=== PATIENT | female | born 1935 | race Caucasian/White ===

== ENCOUNTER 2017-11-12 20:12 | Inpatient (IN) | payer OTHER ==
[~2017-11-12] VITALS: Ht 170.2 cm; Wt 87.5 kg
[2017-11-12 20:20] VITALS: BP 145/90
[2017-11-12] MEDS ORDERED: COLACE100 MG PO (20:35)
[2017-11-12] MEDS ORDERED: CALICUM 500+D1 EACH PO (20:36)
[2017-11-12 20:44] LABS: HEMATOCRIT 39.2 % (37.0-47.0); HEMOGLOBIN 12.8 gm/dL (12.0-15.0); MCH 29.8 pg (26.0-34.0); MCHC 32.6 g/dL (28.0-37.0); MCV 91.1 fL (80.0-100.0); MPV 9.7 fl. (7.2-11.1); NUCLEATED RBCS 0 /100WBC; PLATELET COUNT* 167 thou/uL (150-400); RDW-CV 16.8 % (10.5-14.5); WBC 21.7 thou/uL (4.0-11.0)
[2017-11-12 20:52] LABS: CALCIUM 9.3 mg/dL (8.5-10.1); CREATININE 1.4 mg/dL (0.6-1.3); POTASSIUM 3.5 mmol/L (3.5-5.1)
[2017-11-12 20:54] LABS: INR 1.3; PROTIME 13.1 Seconds (9.20-11.50)
[2017-11-12 20:57] LABS: ALBUMIN 2.5 g/dL (3.4-5.0); TOTAL BILIRUBIN 0.7 mg/dL (<0.1-1.0); TOTAL PROTEIN 7.3 g/dL (6.4-8.2)
[2017-11-12 21:16] LABS: TROPONIN-I LEVEL 0.14 ng/mL (<0.06)
[2017-11-12 21:18] LABS: ABSOLUTE EOSINOPHILS 0.4 thou/uL (0.0-0.7); ABSOLUTE LYMPHOCYTES 0.9 thou/uL (0.8-5.3); ABSOLUTE NEUTROPHILS 20.4 thou/uL (1.6-8.1)
[2017-11-12 21:19] LABS: CLUMPED PLTS FEW; PLATELET ESTIMATE ADEQUATE
[2017-11-12 21:20] LABS: ANISOCYTOSIS Occasional; HYPOCHROMASIA 1+; TOXIC GRANULATION 1+
[2017-11-12 22:53] LABS: INFLUENZA A ANTIGEN None Detected (None Detect); INFLUENZA B ANTIGEN None Detected (None Detect)
[2017-11-12 23:01] LABS: URINE BILIRUBIN NEGATIVE (Negative); URINE BLOOD 2+ (Negative); URINE CLARITY CLEAR; URINE COLOR YELLOW; URINE GLUCOSE-RANDOM NEGATIVE (Negative); URINE KETONES TRACE (Negative); URINE LEUKOCYTES-REFLEX 1+ (Negative); URINE PROTEIN 1+ (Negative); URINE UROBILINOGEN 0.2 E.U./dl (0.2-1.0)
[2017-11-12 23:02] LABS: URINE NITRITE-REFLEX POSITIVE (Negative)
[2017-11-12 23:08] LABS: SQUAMOUS 0-3 Few /LPF (0-3); WBC CLUMPS Few (None Seen)
[2017-11-12 23:09] LABS: BACTERIA-REFLEX >30 Many /HPF (None Seen); CASTS None Seen /LPF (None Seen); CRYSTALS None Seen /LPF (None Seen); MUCUS 0-3 Light strn/LPF (None Seen); URINE WBC-REFLEX >25 Many /HPF (0-5)
[2017-11-13] VITALS (18 sets, daily range): BP systolic 89–166; BP diastolic 31–101
--- NOTE | 2017-11-13 02:37 | NUR ---
PT ADMITTED TO ICU ROOM 8 AT 0150. RECIEVED REPORT FROM JOHN OLIVAS RN. PT HAS NORMAL SALINE AND AMIODARONE INFUSING UPON ARRIVAL. PT RECIEVED VANCOMYCIN AND IV ZOSYN IN ED. PT ALERT AND ORIENTED X4, NSWERS ALL QUESTIONS APPROPRIATELY. PT HAD PEDROZA CATHETER FFROM THAT WAS PLACE 3 WEEKS AGO. PEDROZA WAS DISCONTINUED. PEDROZA TEMP PROBE INSERTED BY YENY CHRISTOPHER RN AND HECTOR HESS RN. PT AFIB ON MONITOR WITH CONTROLED RATE. PT'S BLOOD PRESSURE WITHIN NORMAL LIMITS. PT AFEBRILE AT THIS TIME. BLOOD AND URINE CULTURES DRAWN IN ED. PT'S CALL LIGHT IN REACH, PT DEMONSTRATES PROPER USE.
[2017-11-13 04:23] LABS: HEMATOCRIT 32.4 % (37.0-47.0); MCHC 32.5 g/dL (28.0-37.0); MCV 92.4 fL (80.0-100.0); MPV 9.1 fl. (7.2-11.1); RBC 3.51 mil/uL (4.20-5.00); RDW-CV 16.7 % (10.5-14.5); WBC 15.8 thou/uL (4.0-11.0)
[2017-11-13 04:43] LABS: HEMOGLOBIN 10.5 gm/dL (12.0-15.0)
[2017-11-13 06:00] LABS: ALBUMIN 1.9 g/dL (3.4-5.0); CALCIUM 7.5 mg/dL (8.5-10.1); CREATININE 1.2 mg/dL (0.6-1.3); PHOSPHORUS* 3.5 mg/dL (2.5-4.9); POTASSIUM 3.3 mmol/L (3.5-5.1); TOTAL BILIRUBIN 0.8 mg/dL (<0.1-1.0); TOTAL PROTEIN 5.5 g/dL (6.4-8.2)
--- NOTE | 2017-11-13 11:30 | NUR ---
SPOKE WITH PT AND SIGNIFICANT OTHER, FEDE, AT THE BEDSIDE. FEDE HAS PROVIDED CARE FOR PT FOR YEARS, SHE IS UNABLE TO WALK. HE LIFTS HER OUT OF BED TO HER WHEELCHAIR OR BSC. HE BUILT A RAMP IN THE BATHROOM INTO THE SHOWER SO HE CAN PUT HER IN A SHOWER CHAIR AND THEN WHEEL HER DIRECTLY INTO THE SHOWER. SHE HAS HOME O2. SHE IS CURRENT WITH HOME HEALTH BUT HE DOESN'T KNOW THE NAME OF THE AGENCY, 'IT IS SOMEONE WITH AN OFFICE IN [place].' PT IS ALERT AND ORIENTED AND ABLE TO ANSWER ALL QUESTIONS. PT PLANS ON RETURNING HOME WITH CONTINUED SUPPORT FROM FEDE. HE SAID THAT PT HAS A DTR, 'BUT THE TWO OF US DON'T GET ALONG AND RECENTLY DECEMBER HAS BEEN MAD AT HER TOO, THE WAY SHE ACTS.' ASKED PT IF SHE HAD AN ADVANCE DIRECTIVE, SHE SAID MAYBE A REAL OLD ONE, SHE ISN'T SURE. DISCUSSED WITH HER COMPLETING AN ADVANCE DIRECTIVE, SHE SAID THAT SHE WOULD WANT FEDE TO MAKE HEALTH CARE DECISIONS FOR HER. PROVIDED PT AND S.O. WITH BOOKLET AND FORMS, SUGGESTED THAT THEY READ THEM OVER AND DISCUSS WHAT SHE WOULD WANT OR NOT WANT DONE. THEY ARE AWARE THE FORMS NEED TO BE NOTARIZED, AND THEY CAN CONTACT ME IF THEY HAVE QUESTIONS. NURSING AWARE THAT INFO WAS LEFT WITH PT REGARDING ADVANCE DIRECTIVE.
[2017-11-13 11:51] LABS: BE -1.5 mmol/L (-2 to +3); PCO2 43.8 mmHg (35.0-45.0); PO2 69.6 mmHg (75.0-100.0); pH 7.357 (7.340-7.450)
--- NOTE | 2017-11-13 12:18 | NUR ---
WOUND CARE NOTE: CONSULT RECEIVED FOR CELLULITIS. PATIENT PRESENTS WITH A LARGE AREA TO THE LEFT, SUPERIOR, LATERAL LEG EXTENDS BOTH POSTERIORLY AND ANTERIORLY. OULINED WITH MARKER. AREA IS RED AND HOT TO TOUCH. NO OPEN WOUNDS NOTED WITHIN THE CELLULITIC AREA. PATIENT DOES HAVE WOUNDS TO HER SACRUM AND LEFT BUTTOCK. LEFT BUTTOCK: PATIENT'S SIGNIFICANT OTHER STATES THIS IS FROM WHEN THE PARAMEDICS HAD TO DRAG HER OUT OF THEIR HOUSE. HOWEVER, THIS WOUND IS OVER A BONY PROMINENCE. BELIEVE THIS TO BE A STAGE 3 PRESSURE ULCER MEASURING 1.5X3X0.6 WITH TUNNELING AT 12 O'CLOCK 1CM. MOIST, PINK WOUND BED. XUAN-WOUND WITH SCAR TISSUE, BELIEVE WOUND MAY HAVE EPIBOLE. SIGNIFICANT OTHER STATES THEY HAVE JUST BEEN USING GAUZE AND TAPE OVER AREA BECAUSE THE CHREY THAT CHANGES HER DRESSING SAID IT IS GETTING BETTER. AREA WAS CLEANSED WITH WOUND CLEANSER, PATTED DRY. PACKED WOUND WITH AQUACEL AG. SKIN PREPPED. APPLIED BORDERED FOAM. SIGNIFICANT OTHER STATED THEY USED TO USE AQUACEL AG. LEFT SIDE OF SACRUM: STAGE 3 PRESSURE ULCER MEASURING 0.5X2X0.2. MOIST, RED WOUND BED. XUAN-WOUND WITH SCALING. CLEANSED WITH WOUND CLEANSER, PATTED DRY. APPLIED AQUACEL AG TO WOUND BED. SKIN PREPPED. APPLIED BORDERED FOAM. SUPERIOR ASPECT OF SACRUM: RED, RAISED AREA, POSSIBLY BLISTERED. BLANCHABLE. UNSURE OF ETIOLOGY, COULD BE FRICTION/SHEARING RELATED. LEFT OPEN TO AIR. PATIENT ALSO HAS MULTIPLE AREAS OF ECCHYMOSIS AND SKIN TEARS TO BILATERAL KNEES/SHINS. SIGNIF. OTHER STATES THESE ARE FROM THE ADJUSTMENTS ON THE COMMODE. HE HOPES TO BE ABLE TO GET A NEW ONE SO IT DOESN'T HURT HER SKIN. PATIENT WAS TURNED ON RIGHT SIDE WITH WEDGES. EDUCATED PATIENT, SIGNIFICANT OTHER AND NURSE ON NEED FOR RIGHT SIDE-BACK TURNING TO KEEP OFF THE WOUNDS, COMMUNICATED UNDERSTANDING. PATIENT HAD BUNNY BOOTS TO BILATERAL HEELS. REMOVED, CHECKED HEELS. HEELS ARE INTACT. EDUCATED PATIENT, SIGNIFICANT OTHER, AND NURSE ON NEED FOR OFFLOADING BOOTS TO KEEP HEELS UP OFF OF THE BED, COMMUNICATED UNDERTANDING. EDUCATED PATIENT AND SIGNIFICANT OTHER ON IMPORTANCE OF NUTRITION FOR WOUND HEALING, COMMUNICATED UNDERSTANDING. SIG. OTHER STATES HE COOKS FOR HER, SHE LOVES EGGS AND TOAST IN THE AM AND SPAGHETTI. RECOMMEND TURN Q2 HOURS-BACK AND RIGHT SIDE-KEEP OFF LEFT SIDE BECAUSE OF THE WOUNDS ENCOURAGE GOOD NUTRITION AND HYDRATION FOLLOW UP IN WOUND CENTER UPON DISCHARGE
--- NOTE | 2017-11-13 17:47 | EKG ---
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[employer]: [facility] : 1935 Requested By: Mary Stoner Order Number: [id number] MD: Pillo Perez Measurements Intervals [place] Rate: 98 P: MD: QRS: 20 QRSD: 107 T: 248 QT: 386 QTc: 493 Interpretive Statements Atrial fibrillation RSR' in V1 or V2, right VCD or RVH Nonspecific T abnormalities, lateral leads Borderline prolonged QT interval No previous ECG available for comparison Electronically Signed On 11-13-2017 17:47:09 CDT by Pillo Perez [email or web address] <ELECTRONICALLY SIGNED> By: Pillo Perez MD, [facility] 11/13/17 174 26 26 Pillo Perez MD, [facility] /EPI
[2017-11-14] VITALS (10 sets, daily range): BP systolic 122–139; BP diastolic 47–78
[2017-11-14 04:29] LABS: ABSOLUTE LYMPHOCYTES 0.4 thou/uL (0.8-5.3); ABSOLUTE MONOCYTES 0.2 thou/uL (0.0-1.2); ABSOLUTE NEUTROPHILS 7.6 thou/uL (1.6-8.1); BASOPHILS 0.1 %; HEMATOCRIT 34.7 % (37.0-47.0); HEMOGLOBIN 11.2 gm/dL (12.0-15.0); LYMPHOCYTES 4.5 %; MCHC 32.5 g/dL (28.0-37.0); MCV 92.5 fL (80.0-100.0); MPV 9.7 fl. (7.2-11.1); NUCLEATED RBCS 0 /100WBC; PLATELET COUNT* 104 thou/uL (150-400); POLYS 93.4 %; RBC 3.75 mil/uL (4.20-5.00); RDW-CV 17.1 % (10.5-14.5); WBC 8.1 thou/uL (4.0-11.0)
[2017-11-14 04:45] LABS: PREALBUMIN 7.7 mg/dL (18.0-35.7)
[2017-11-14 05:10] LABS: ALBUMIN 2.1 g/dL (3.4-5.0); CALCIUM 7.7 mg/dL (8.5-10.1); CREATININE 1.2 mg/dL (0.6-1.3); MAGNESIUM 1.3 mg/dL (1.8-2.4); POTASSIUM 3.4 mmol/L (3.5-5.1); TOTAL BILIRUBIN 0.7 mg/dL (<0.1-1.0); TOTAL PROTEIN 6.1 g/dL (6.4-8.2)
--- NOTE | 2017-11-14 06:18 | NUR ---
PT CURRENTLY RESTING IN BED AND COMFORTABLE. PT AFIB ON MONITOR. PT WITH LOW GRADE TEMP THROUGHOUT SHIFT. AM LABS REVIEWED. PT CONTINUES WITH MAINTENANCE IVF.
--- NOTE | 2017-11-14 06:19 | CON ---
[address] [address] CONSULTATION Name: TASHA HAMILTON Room: [address] IN M.R.#: [id number] Admission: 11/12/17 Attend Phys: Adrian Rangel Discharge: Date of : 33 Report #: [id number] THIS REPORT FOR: //name// CC: Dada Simpson DATE OF SERVICE: 11/13/2017 INFECTIOUS DISEASE CONSULTATION ATTENDING PHYSICIAN: Otis Simpson DO REASON FOR EVALUATION: Sepsis, probable pneumonitis, may well be postobstructive, also apparently has extensive skin and soft tissue infection involving the distal aspect of her left lateral torso extending onto her thigh and moderate to marked pyuria as well. HISTORY OF PRESENT ILLNESS: Chart reviewed, patient examined. This is an 82-year-old with history of severe scoliosis. She is nonambulatory, who apparently acutely had developed gastrointestinal-related complaints. She was evaluated in the Emergency Room, prescribed ciprofloxacin. It is not clear that she had diverticulitis within 1 dose; however, she apparently experienced severe neuropsychiatric with uncontrolled muscle contractions, encephalopathy, so discontinued. Actually, she also had some watery diarrhea as well. She had improved over the course of the next 24-48 hours, only to have worsening issues with profound weakness. She almost fell, was found to have some low grade temperature elevations to 101.6 recorded here, felt to have a sepsis and was placed in intensive care unit. As part of the evaluation, chest x-ray, there is question of pneumonitis, CT of the chest in followup noted a large mass in the left upper lobe with extension into the upper mediastinum. Urinalysis showed greater than 25 white cells, greater than 30 bacteria. Additional exam, extensive area of erythrodermic type, painful eruption involving the area of proximal thigh laterally on the left side, is extending onto the torso felt to be consistent with cellulitis. She was started on broad-spectrum therapy with vancomycin as well as piperacillin and tazobactam. She is somewhat lethargic at this point. She is not in significant distress at this point. She is mildly encephalopathic. ALLERGIES: LISTED TO SULFA. CURRENT MEDICATIONS: Include pantoprazole, enoxaparin, ipratropium and albuterol inhaler, Zosyn, methylprednisolone, vancomycin, p.r.n. analgesics, antiemetics. PAST MEDICAL HISTORY: Includes oxygen-requiring COPD, history of severe scoliosis that left her with inability to ambulate, [place] [address] CONSULTATION Name: TASHA HAMILTON Room: [address] IN [facility]#: [id number] Admission: 11/12/17 Attend Phys: Adrian Rangel Discharge: Date of : 33 Report #: [id number] chronic Snyder catheter. SOCIAL HISTORY: Former smoker. No ethanol. FAMILY HISTORY: Noncontributory. REVIEW OF SYSTEMS: As above. Denies any abdominal-related complaints. Does admit to some dyspnea. PHYSICAL EXAMINATION: GENERAL: She appears chronically ill, undernourished. She is cooperative, feeding herself. There is unclear degree of encephalopathy. VITAL SIGNS: Temperature 99.2; as noted above, T-max 101.6, pulse 78, respirations 18, blood pressure 104/31. SKIN: Warm, dry, no rashes. HEENT: Otherwise, unremarkable. Nasal cannula oxygen in place. NECK: Supple. LUNGS: Diminished breath sounds, few scattered, coarse, left greater than right. HEART: Regular rate. No appreciated murmur. ABDOMEN: Mildly distended. It is otherwise soft, nontender. There are no peritoneal signs. GENITOURINARY: Deferred. RECTAL: Deferred. LABORATORY DATA: Recent ABGs: pH 7.357, pCO2 of 43, pO2 of 69.6 that was on 4 liters. Blood cultures sterile thus far. CT of the chest is in followup. The plain film showed a large mass in the left upper lobe with extension to the upper mediastinum abutting the descending aorta, probable left hilar adenopathy, mediastinal adenopathy. Electrolytes: Sodium 141, potassium 3.3, chloride 105, bicarbonate 28, BUN and creatinine 18 and 1.2, anion gap of 8. LFTs unremarkable. Albumin of 1.9, total protein 5.5. CT of the pelvis, inguinal or femoral hernia, left hip joint replacement, posterior aspect shows possible hematoma or granulation tissue, left ischial tuberosity in the left femur without evident definite fluid collection. Culture from the buttock is pending. Gram stain showed Gram-positive rods, gram-positive cocci, few wbc's. Urinalysis, white count of greater than 25, bacteria greater than 30. Lactic acid of 1.8. Influenza antigen not detected. CBC: White count of 21.7, H and H 12.8 and 39.2, platelets of 167. Did have toxic granulations and some Dohle bodies. ASSESSMENT: Sepsis with apparent multiple foci of infection. I think clearly has skin and soft tissue infection with cellulitis, probably arising from superficial ulcers, likely chronic indwelling Snyder, although has marked pyuria and then finally evidence of pulmonary mass and possible secondary bacterial pneumonitis. We will continue broad spectrum therapy as prescribed. Per staff, [address] [place] [address] CONSULTATION Name: TASHA HAMILTON Room: [address] IN .R.#: [id number] Admission: 11/12/17 Attend Phys: Adrian Rangel Discharge: Date of : 34 Report #: [id number] this is marginally improved since admission. We will await culture results, urinary antigens. It is not clear that she would be a surgical candidate. Followup imaging is necessary; however, she remains critically ill. <ELECTRONICALLY SIGNED> By: Herman Hall MD 11/14/17 0619 1500 [id number] Hall MD /nt
--- NOTE | 2017-11-14 08:11 | NUR ---
REPORT CALLED TO RANJAN HOLBROOK.
--- NOTE | 2017-11-14 10:18 | CON ---
[address] [address] CONSULTATION Name: TASHA HAMILTON Room: [address] IN M.R.#: [id number] Admission: 11/12/17 Attend Phys: Adrian Rangel Discharge: Date of : 34 Report #: [id number] THIS REPORT FOR: //name// CC: Dada Simpson DATE OF SERVICE: 11/13/2017 REFERRING PHYSICIAN: Hossein Swanson MD CHIEF COMPLAINT: Lung mass. HISTORY OF PRESENT ILLNESS: The patient is an 82-year-old female who is accompanied by her "significant other." He tells me that they have been together for about 25 years. The patient had been a smoker, quit 25 years ago, probably has about a 30-35 pack year smoking history. She has never been diagnosed with any respiratory related problems. According to the patient's significant other, she had been in her usual state of health up until yesterday when she developed sudden onset of which she felt cold, hot, was not feeling well otherwise. There was no association of nausea, vomiting or pain of any sort. Because of her change of subjective symptoms, she brought her to the Emergency Room. Today, the patient is awake, alert. She is responsive. She is experiencing some discomfort and pain on the left hip and buttock area and lower back. The patient is not experiencing any distress. She has been coughing up some thick phlegm. Today, she is denying nausea, vomiting, diarrhea, constipation. She does have a Snyder catheter in place that has been present since probably last summer. PAST MEDICAL HISTORY: Significant for atrial fibrillation with RVR, cellulitis, rapid atrial fibrillation, sepsis. 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 She is bedridden and wheelchair bound chronically for the past 9 years according to the patient's friend who is present. He assists her in getting up out of bed, transferring out of bed into a wheelchair. He provides her with care in the sense of feedings, bathing and eating. ALLERGIES: She is allergic to SULFA drugs. SOCIAL HISTORY: She is not . She lives with her current boyfriend for the past 25 years. FAMILY HISTORY: [place]contribut[place] [address] CONSULTATION Name: JOY Room: [address] IN [facility].#: [id number] Admission: 11/12/17 Attend Phys: Adrian Rangel Discharge: Date of : 34 Report #: [id number] REVIEW OF SYSTEMS: System review negative other than what is outlined above. CURRENT MEDICATIONS: Protonix, Lovenox, Solu-Medrol, Zosyn, vancomycin, DuoNeb aerosol treatments, stool bowel regimen. PHYSICAL EXAMINATION: VITAL SIGNS: Blood pressure 98/52, respiratory rate 16, nonlabored, pulse rate 65 and irregular. Temperature 99.5. Her admission temperature was 101.6 degrees. There is not an accurate weight recorded. GENERAL APPEARANCE: She is awake, responsive. She is on oxygen therapy and uses this chronically. This had been provided by her primary physician who is in [place], [place]. HEENT: Her head is atraumatic. Eyes: Pupils are round and equal, reactive. Oral cavity: Her tongue is very dry. She is able to move her tongue without difficulty. There are no lesions seen. No evidence of significant oropharyngeal obstruction. NECK: There is no adenopathy or JVD. Supraclavicular area is free of fullness. CHEST: Reveals good breath sounds. No wheezes, rales or rhonchi. CARDIOVASCULAR: Irregular rhythm without murmurs or rubs. ABDOMEN: Soft. No organomegaly or tenderness. EXTREMITIES: Trace of edema bilaterally. She has significant excoriation of her lower extremities. I am not sure if this was from injury or scratching. Her left hip shows an extensive area of erythema that is warm to touch, extending from the flank area on the left to the mid thigh and migrates anteriorly, but not to the inner thigh. The RN points out that there is a wound on the coccyx area. I was not able to get a good look at this because of the patient's position and discomfort. Skin otherwise is without diaphoresis. There is no rash. NEUROLOGIC: She is able to move her extremities. She has extreme weakness of the lower extremities bilaterally. Awake, alert. LABORATORY DATA: Electrolytes: Sodium 141, potassium 3.3, chloride 105, CO2 of 28, BUN of 18, creatinine 1.2. EGFR 43. Hemoglobin and hematocrit of 10.5 and 32 with a white count of 15,800. Her admission white count was 21,700, platelet count 109,000 today. Influenza A/B screen are negative. Urinalysis was positive for nitrites, 2+ for blood, greater than 30 bacteria organisms per high power field, WBCs greater than [address] power field[address] of the chest was performed demonstrating a lobulated mass in the right upper lung field. There appears to be some lymph node involvement in the AP window. ASSESSMENT: 1. Cellulitis. 2. Sepsis syndrome. 3. Lung mass involving left upper lobe. See formal dictated report from the CT. [place] [id number] CONSULTATION Name: TASHA HAMILTON Room: [address] IN [facility]#: [id number] Admission: 11/12/17 Attend Phys: Adrian Rangel Discharge: Date of : 34 Report #: [id number] 4. General weakness resulting in a bedridden state. 5. Past history of polio. 6. Scoliosis by history as well. RECOMMENDATION: The patient is currently being treated for an acute sepsis condition with antibiotic coverage. We would go ahead and taper her steroids accordingly. Respiratory reilly, she is not in great deal of distress. We will go ahead and obtain arterial blood gas. Once her sepsis condition is better controlled, we can begin to address her mass in the left lung. I brought this to the attention of the patient as well as to her live-in boyfriend. We will reapproach her to determine whether she wishes to pursue this on an aggressive type basis. Approximately 35 minutes spent on this critically ill patient. <ELECTRONICALLY SIGNED> By: Bianca Guevara MD 11/14/17 1018 1046 [id number] Crawley MD /nt
--- NOTE | 2017-11-14 13:07 | NUR ---
PT TRANSFERED TO UNIT AROUND 0930 FRON ICU PT IS Q 2 HOUR TURNS ONLY RIGHT AND LEFT SIDE PT IS IRRITABLE AND YELLS INAPPROPRIATELY AT STAFF AND FAMILY, PT VANCYO TROUGH [facility] REDOSED AND THIS NURSE GAVE NEW DOSE OF VANCYO TO PT HUNG FLUIDS, PT IS BEDREST USES BEDPAN, PT HAS PEDROZA HAS HISTORY OF NEUROGENIC BLADDER, PT NEEDS HELP SET UP TO EAT FAMILY ATTEMPTED TO HELP AND PT YELLED AT FAMILY, PT IS SR ON THE MONITOR, PT IS A FALL RISK BED ALARM IS ON, PT HAS WOUND ON BUTTOCK COVERED WITH DRESSING WHICH IS CHANGED DAILY, WILL CONTINUE TO MONITOR
--- NOTE | 2017-11-14 14:31 | NUR ---
CM met with Pt and f/u regarding DPOA paperwork. Pt stated that she is still thinking about if she would want to complete a power of estate attorney. CM informed Pt that there will be someone available this weekend, if she decides to complete one. Following.
--- NOTE | 2017-11-14 17:27 | 2DMMODE ---
[place] [address] 2 D/M-MODE ECHOCARDIOGRAM Name: TASHA HAMILTON Room: [address] IN [facility]#: [id number] Admission: 11/12/17 Attend Phys: Otis Simpson Discharge: Date of : 33 Date of Service: 11/14/17 1727 Report #: [id number] THIS REPORT FOR: //name// APPROVED REPORT Study performed: 11/14/2017 10:28:51 EXAM: Comprehensive 2D, Doppler, and color-flow Echocardiogram Patient Location: In-Patient Room #: 218 Status: routine BSA: 1.92 HR: 83 bpm BP: 139/76 mmHg Rhythm: Atrial Fibrillation Other Information Study Quality: Good Indications Atrial Fibrillation Sepsis 2D Dimensions LVEF(%): 46.80 (>50%) IVSd: 9.56 (7-11mm) LVOT Diam: 20.37 (18-24mm) LVDd: 41.76 mm PWd: 8.94 (7-11mm) Ascending Ao: 37.18 (22-36mm) LVDs: 32.09 (25-40mm) Aortic Root: 34.24 mm Zuleta's LVEF: 46.80 % Volumes Left Atrial Volume (Systole) LA ESV Index: 56.70 mL/m2 Aortic Valve AoV Peak Zi.: 1.17 m/s AO Peak Gr.: 5.46 mmHg LVOT Max P.62 mmHg AO Mean Gr.: 3.24 mmHg LVOT Mean P.20 mmHg LVOT Max V: 0.81 m/s AO V2 VTI: 21.07 cm LVOT Mean V: 0.50 m/s MARLEY (VTI): 2.22 cm2 LVOT V1 VTI: 14.34 [place] [address] 2 D/M-MODE ECHOCARDIOGRAM Name: TASHA HAMILTON Room: [address] IN ..#: [id number] Admission: 11/12/17 Attend Phys: Otis Simpson Discharge: Date of : 34 Date of Service: 11/14/17 1727 Report #: [id number] MV Decel. Time: 125.20 ms MV PHT: 36.31 ms MVA (PHT): 6.06 cm2 Pulmonary Valve PV Peak Zi.: 0.78 m/s PV Peak Gr.: 2.45 mmHg Tricuspid Valve TR Peak Gr.: 34.99 mmHg RVSP: 40.00 mmHg Left Ventricle The left ventricle is normal size. There is normal LV segmental wall motion. There is normal left ventricular wall thickness. Left ventricular systolic function is mildly decreased. LVEF is 45%. This study is not technically sufficient to allow evaluation of the LV diastolic function due to atrial fibrillation. Right Ventricle Right ventricle is dilated. The right ventricular systolic function is normal. Atria Left atrium is severely dilated. Right atrium is moderately dilated. Aortic Valve The aortic valve is normal in structure. No aortic regurgitation is present. There is no aortic valvular stenosis. Mitral Valve The mitral valve is normal in structure. Mild mitral regurgitation. No evidence of mitral valve stenosis. Tricuspid Valve The tricuspid valve is normal in structure. Moderate tricuspid regurgitation. The RVSP is 40-45 mmHg. Pulmonic Valve The pulmonary valve is normal in structure. Trace pulmonic regurgitation. Great Vessels The aortic root is normal in size. IVC is normal in size and collapses with >50% [place] [address] 2 D/M-MODE ECHOCARDIOGRAM Name: JOYTASHA Ammy Room: [address] IN [facility].#: [id number] Admission: 11/12/17 Attend Phys: Otis Simpson Discharge: Date of : 34 Date of Service: 11/14/17 1727 Report #: [id number] There is no pericardial effusion. <Conclusion> The left ventricle is normal size. There is normal left ventricular wall thickness. Left ventricular systolic function is mildly decreased. LVEF is 45%. This study is not technically sufficient to allow evaluation of the LV diastolic function due to atrial fibrillation. Right ventricle is dilated. Left atrium is severely dilated. Right atrium is moderately dilated. The aortic valve is normal in structure. The mitral valve is normal in structure. Mild mitral regurgitation. Moderate tricuspid regurgitation. The RVSP is 40-45 mmHg. IVC is normal in size and collapses with >50% inspiration There is no pericardial effusion. There is normal LV segmental wall motion. <ELECTRONICALLY SIGNED> By: Pillo Perez MD, [facility] 11/14/171726 26 26 Pillo Perez MD, FACC /INF
[2017-11-15 01:07] VITALS: BP 140/84
--- NOTE | 2017-11-15 01:08 | NUR ---
RECIEVED REPORT AT 1930. ASSESSMENT COMPLETED CHARTED. A & O X 4, ABLE TO MAKE NEEDS KNOWN, Q2HR TURN, NO C/O PAIN OR SOA. PT HAS SEVERAL SKIN TEARS AND BRUISES ON BOTH ARMS, FRAGILE SKIN, 2 PATENT LEFT HAND AND LEFT FOREARM IVS, PT IS WHEELCHAIR BOUND. WILL CONTINUE WITH PLAN OF CARE.
[2017-11-15 04:48] VITALS: BP 135/74
[2017-11-15 06:10] LABS: MAGNESIUM 1.5 mg/dL (1.8-2.4); POTASSIUM 4.4 mmol/L (3.5-5.1)
[2017-11-15 08:30] VITALS: BP 147/84
[2017-11-15 11:31] VITALS: BP 131/82
[2017-11-15 15:53] VITALS: BP 167/78
--- NOTE | 2017-11-15 17:18 | NUR ---
ASSUMED PT CARE AT 0700 PT IS ALERT AND ORIENTED X 4 PT IS COOPERATIVE PT IS Q 2 HOUR TUNRNS LEFT OR RIGHT SIDE ONLY CHANGED PT DRESSINGS, PT IS AFIB ON THE MONITOR PT IS ON 4L/NC PT AMIODARONE WAS DISCONTINUED SWITCHED TO METOPROLOL GAVE DOSE, GAVE PT ANTIBIOTICS VANCYO TROUGH WILL BE DRAWN TOMORROW, WILL CONTINUE TO MONITOR
[2017-11-15 20:00] VITALS: BP 146/88
[2017-11-16] VITALS: BP 134/92
--- NOTE | 2017-11-16 01:06 | NUR ---
RECIEVED REPORT AT 1930. PT IS A & O X 4, ABLE TO MAKE NEEDS KNOWN, CALL LIGHT WITHIN REACH, NO C/O PAIN, JUST DISCOMFORT IN AREAS AT TIMES. PT Q2HR TURNS SIDE TO SIDE ONLY, PT HASNT BEEN ASLEEP YET THIS SHIFT. IV ABT GIVEN FOR PAST SEPSIS, AND CELLULITIS. WILL CONTINUE WITH PLAN OF CARE.
[2017-11-16 04:00] VITALS: BP 153/80
[2017-11-16 05:06] LABS: ABSOLUTE LYMPHOCYTES 0.8 thou/uL (0.8-5.3); ABSOLUTE MONOCYTES 0.7 thou/uL (0.0-1.2); ABSOLUTE NEUTROPHILS 9.2 thou/uL (1.6-8.1); BASOPHILS 0.1 %; HEMATOCRIT 36.1 % (37.0-47.0); HEMOGLOBIN 11.6 gm/dL (12.0-15.0); LYMPHOCYTES 7.7 %; MCH 29.7 pg (26.0-34.0); MCHC 32.2 g/dL (28.0-37.0); MCV 92.4 fL (80.0-100.0); MONOCYTES 6.7 %; MPV 9.3 fl. (7.2-11.1); NUCLEATED RBCS 0 /100WBC; PLATELET COUNT* 178 thou/uL (150-400); POLYS 85.5 %; RBC 3.91 mil/uL (4.20-5.00); RDW-CV 17.5 % (10.5-14.5); WBC 10.8 thou/uL (4.0-11.0)
[2017-11-16 06:41] LABS: ALBUMIN 2.2 g/dL (3.4-5.0); CALCIUM 8.1 mg/dL (8.5-10.1); POTASSIUM 4.8 mmol/L (3.5-5.1); TOTAL BILIRUBIN 0.5 mg/dL (<0.1-1.0); TOTAL PROTEIN 6.1 g/dL (6.4-8.2)
[2017-11-16 09:00] VITALS: BP 157/82
[2017-11-16 12:11] VITALS: BP 150/86
[2017-11-16 17:07] VITALS: BP 139/80
--- NOTE | 2017-11-16 17:31 | NUR ---
ASSUMED PT CARE AT 0700 PT IS ALERT AND ORIENTED X 4 PT DENIES PAIN OR SOA ON 4L/NC PT IS BEDREST WHEELCHAIR BOUND PT IS TURNED Q 2 HOURS RIGHT OR LEFT SIDE ONLY PT VANCYO TROUGH [facility] HELD VANCYO PER PROTOCOL AND REORDERED FOR TOMORROW PENDING RESULTS GAVE PT ZOSYN PT IS AFIB ON THE MONITOR, PT HAS BEEN PLEASNAT AND COOPERATIVE, WILL CONTINUE TO MONITOR
[2017-11-16 20:00] VITALS: BP 139/80
[2017-11-17] VITALS: BP 149/83
--- NOTE | 2017-11-17 02:16 | NUR ---
RECIEVED REPORT AT 1930. ASSESSMENT COMPLETED CHARTED. NO C/O PAIN OR DISCOMFORT NOTED AT THIS TIME. PT IS ON BEDREST, Q2TURN, PEDROZA IS PATENT DRAINING YELLOW URINE W/O DIFFICULTY, IV IS RUNNING 150 NS IN LEFT FOREARM AND LEFT HAND IS SL. PT IS A & O X 4, ABLE TO MAKE NEEDS KNOWN, USES CALL LIGHT FREQUENTLY. PT SLEEPING AT THIS TIME. WILL CONTINUE WITH PLAN OF CARE.
[2017-11-17 03:55] VITALS: BP 136/73
[2017-11-17 08:00] VITALS: BP 149/72
[2017-11-17 11:55] VITALS: BP 154/69
[2017-11-17 15:16] VITALS: BP 136/66
--- NOTE | 2017-11-17 18:41 | NUR ---
RECEIVED REPORT. ASSUMED CARE OF PT AROUND 0730. PT A&O X4, PLEASANT. VSS. O2 SAT 94% ON 4L PER NC. CONTRACT ASSOCIATE MANAGER IN PLACE TRACING AFIB WITH NO CHANGES THIS SHIFT. AM ASSESSMENT AND VITALS COMPLETED CHARTED. PT HAS BEEN SAD THIS SHIFT - DOCTORS HAVE BEEN IN TALKING TO HER ABOUT POSSIBLE LUNG CANCER DIAGNOSIS. REASSURANCE AND THERAPEUTIC COMMUNICATION PROVIDED. PT DEBATING HOSPICE/COMFORT CARE OR TREATMENT. PT'S SIGNIFICANT OTHER HAS BEEN AT BEDSIDE MOST OF SHIFT. PT EATING AND DRINKING WITHOUT ISSUE THIS SHIFT, EATING ABOUT 50% OF MEALS. PT REPOSITIONED Q2HRS FOR COMFORT IN THE BED. DRESSINGS TO LEFT BUTTOCKS AND SACRAL AREA CDI. PT HAS MULTIPLE SKIN TEAR WOUNDS TO BILATERAL ARMS AND LEGS - ALL HEALING. PT REPORTED BACK PAIN THIS SHIFT THAT WAS RELIEVED WITH PO PAIN MEDICATION. PEDROZA IN PLACE TO DD, WITH YELLOW OUTPUT. IV'S TO LEFT FA INTACT AND INFUSING IVF. MEDS PER EMAR. 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 ISOLATION INITIATED AND MAINTAINED. PT INFORMED OF PLAN OF CARE, COMMUNICATES UNDERSTANDING. PT CURRENTLY WATCHING TV IN BED. CALL LIGHT IS WITHIN REACH, FALL PRECAUTIONS ARE INI PLACE. HOURLY ROUNDING PERFORMED. WCTM FOR DURATION OF SHIFT.
[2017-11-17 20:00] VITALS: BP 126/66
[2017-11-18 00:02] VITALS: BP 134/67
--- NOTE | 2017-11-18 02:57 | NUR ---
PT ALERT ORIENTED. PT VERBALIZED FEAR OF . RN ASKED PT IF SHE WOULD LIKE TO SPEAK WITH SPIRITAL CARE. PT DECLINED. ALLOWED FOR VERBALIZATION OF FEELINGS. TELEMETRY SHOWS AFIB. O2 AT 4 LITERS NC. PEDROZA WITH YELLOW. L SACRAL AND BUTTOCK DRSGS IN PLACE. NS AT 150HR. DR SEBASTIAN NOTIFIED TO SEE IF IVF AT 150 WERE APPROPRIATE FOR PT NOW. NS DC'D. WILL CONTINUE TO MONITOR.
[2017-11-18 03:28] VITALS: BP 129/75
[2017-11-18 05:48] LABS: HEMOGLOBIN 12.6 gm/dL (12.0-15.0); MCHC 31.6 g/dL (28.0-37.0); MCV 94.8 fL (80.0-100.0); NUCLEATED RBCS 0 /100WBC; PLATELET COUNT* 193 thou/uL (150-400); RBC 4.22 mil/uL (4.20-5.00); RDW-CV 18.1 % (10.5-14.5); WBC 8.3 thou/uL (4.0-11.0)
--- NOTE | 2017-11-18 05:52 | NUR ---
RAND CHGD ON L UPPER BUTTOCK AND L SACRAL PER ORDERS.
[2017-11-18 06:15] LABS: ALBUMIN 2.2 g/dL (3.4-5.0); CALCIUM 8.3 mg/dL (8.5-10.1); CREATININE 1.1 mg/dL (0.6-1.3); TOTAL BILIRUBIN 0.6 mg/dL (<0.1-1.0); TOTAL PROTEIN 6.2 g/dL (6.4-8.2)
[2017-11-18 06:36] LABS: POTASSIUM 4.6 mmol/L (3.5-5.1)
[2017-11-18 06:39] LABS: ABSOLUTE LYMPHOCYTES 0.6 thou/uL (0.8-5.3); ABSOLUTE MONOCYTES 0.2 thou/uL (0.0-1.2); ABSOLUTE NEUTROPHILS 7.6 thou/uL (1.6-8.1)
[2017-11-18 06:42] LABS: ANISOCYTOSIS 2+; PLATELET ESTIMATE ADEQUATE
[2017-11-18 07:50] VITALS: BP 144/67
--- NOTE | 2017-11-18 09:35 | CON ---
[address] [address] CONSULTATION Name: TASHA HAMILTON Room: [address] IN M.R.#: [id number] Admission: 11/12/17 Attend Phys: Adrian Rangel Discharge: Date of : 33 Report #: [id number] THIS REPORT FOR: //name// CC: Dada Simpson DATE OF SERVICE: 11/17/2017 REQUESTING PHYSICIAN: Hossein Swanson M.D. REASON FOR CONSULTATION: Lung mass. SUBJECTIVE: An 82-year-old female who is an ex-smoker was admitted because of cough and phlegm. She was admitted initially at the Intensive Care Unit. The patient underwent CT scan of the chest on 11/12/2017, which showed large mass in the right upper lobe, extends to the right hilum, mass measures 5.6 cm with positive hilar nodes, possible also left hilar adenopathy and AP window adenopathy, mediastinal lymph nodes. The patient is bedridden, has ECOG performance status of 4. The patient was also found to have an AFib. I discussed with the patient and her significant other today the treatment options for at least stage 3 lung cancer will be concurrent chemoradiation; however, the patient had a very poor performance status with multiple comorbidities. At this point, I did recommend hospice for the patient. REVIEW OF SYSTEMS: All systems reviewed, was negative except for the above. PAST MEDICAL HISTORY: AFib with RVR, COPD on home oxygen, bedridden, neurogenic bladder, severe scoliosis. SOCIAL HISTORY: She is in an ex-smoker, quit 25 years ago. A 13-36-qijd-year smoking history. ALLERGIES: SHE IS ALLERGIC TO SULFA. MEDICATIONS: Per admission list. FAMILY HISTORY: Noncontributory. PHYSICAL EXAMINATION: VITAL SIGNS: Today, temperature 37.1, pulse 62, respirations 17, blood pressure is 154/69. GENERAL: The patient was lying in bed. Her head was tilted to the right side. LUNGS: Decreased breathing sounds bilaterally. HEART: Irregular irregularity. ABDOMEN: Soft, nontender, nondistended, [place] [address] CONSULTATION Name: TASHA HAMILTON Room: [address] IN [facility]#: [id number] Admission: 11/12/17 Attend Phys: Adrian Rangel Discharge: Date of : 33 Report #: [id number] EXTREMITIES: Possible edema. LABORATORY DATA: Today, WBC 10.8, hemoglobin 11.6, platelets 178. BUN 21, creatinine 1.0, total bilirubin 0.5. IMAGING: CT chest as mentioned above. CT pelvis, right inguinal or femoral hernia, old fracture deformity in the right hip, left hip replacement. ASSESSMENT AND PLAN: An 82-year-old female with multiple comorbidities and very poor performance status, bedridden, ECOG of 4, was an ex-smoker, was found to have a lung mass measuring 5.6 cm with mediastinal and hilar lymph nodes. There is a trace of left pleural effusion and possible metastatic disease in the left hilar lymph nodes. The patient was evaluated from Oncology standpoint, I discussed with the family that she has multiple comorbidities and poor performance status. She is not going to be a candidate for standard of care, which probably will be concurrent chemoradiation for 6 weeks. I had a lengthy discussion with the patient and her significant other. Goals of care have been discussed including hospice. I do recommend hospice at this point. The patient would like to discuss with the rest of the family. We will follow the patient during hospitalization. <ELECTRONICALLY SIGNED> By: Matthew Finnegan MD 11/18/17 0935 1250 1840Matthew Finnegan MD /nt
--- NOTE | 2017-11-18 11:01 | NUR ---
Nutrition: Pt has ulcers on buttocks and sacrum. Alb 2.2, prealb 10.9, BG WNL. Has mass in Rt lung. Wt: 193#. Heart Healthy diet. Per chart, hospice/palliative are recommended. Family is "not wanting to do much," per chart. RD will not order nutritional supplements for wound healing at this time. Please know they available at any time if pt or family desires. Pt was busy with PT at time time of attempted visit, 9:40. Please consult RD if nutrition is desired.
--- NOTE | 2017-11-18 11:03 | NUR ---
ASSUMED CARE OF PATIENT THIS AM AT 0730. PATIENT IS ALERT AND ORIENTED X [address] IN TO ROUND AND TRANSFER ORDERS WRITTEN. PATIENT ASSISTED WITH ADLS NEEDED THROUGHOUT THE DAY. SO IS IN AT THE BEDSIDE. PATIENT REFUSED PT TODAY. SHE REMAINS ON 4 LITERS NC. TELE MONITOR TO BE DISCONTINUED.
--- NOTE | 2017-11-18 11:51 | NUR ---
NO OT AT THIS TIME, PT IS AT PLOF OF DEPENDENT FOR THE LAST 9 YEARS PER SIGNIFICANT OTHER.
[2017-11-18 12:15] VITALS: BP 153/77
--- NOTE | 2017-11-18 15:43 | NUR ---
CM attempted x3 today to complete DPOA paperwork, all 3 times, Pt has been sound asleep. Sig other at bedside and stated that they had discussed and she wishes to complete a DPOA. CM will continue to attempt to complete. Discussed possible need for IVABX at dc, sig other stated that he thinks he could adminster at home, with proper education v. Pt going to skilled. CM to discuss with Pt. Updated nurse. Following.
[2017-11-18 20:00] VITALS: BP 147/74
--- NOTE | 2017-11-19 04:59 | NUR ---
ASSUMED PATIENT CARE AT 1900. PATIENT ALERT TO SELF, VERY CONFUSED. PEDROZA CATHETER IN PLACE AND DRAING DARK YELLOW URINE. PATIENT HAS SEVERAL WOUNDS AT THIS TIME. BILATERAL LEGS OPENLY WEEPING SEROUS FLUID. 2 IV SITES IN LEFT FA, BRUISING NOTED, IVS STILL PATENT. BRUISING AND SKIN TEAR AREAS NOTED. REMAINS ON 4L O2 VIA NC, THIS IS HER HOME DOSAGE. VITAL SIGNS STABLE AT THIS TIME. NO COMPLAINTS OF PAIN OR DISCOMFORT. PATIENT UNABLE TO GET OUT OF BED ON HER OWN. BUNNY BOOTS IN PLACE ON BILATERAL FEET. PATIENT WAS TURNED Q2H THROUGH THE NIGHT. HOURLY ROUNDING AND PRINT LINE SUPERVISOR COMPLETED DOCUMENTED.
[2017-11-19 08:04] VITALS: BP 134/67
--- NOTE | 2017-11-19 13:18 | NUR ---
MULTIPLE ATTEMPTS HAVE BEEN MADE OVER THE LAST THREE DAYS TO INITIATE PHYSICAL THERAPY. PATIENT UNWILLING TO PARTICIPATE. DESIRES TO BE TAKEN OFF THERAPY LIST. SUSPECT THAT SHE WILL BE PLACED ON HOSPICE SERVICES AFTER DC'S FROM [facility]. PATIENT WILL BE DC'ED FROM [facility]. SANTIAGO MATHEWS, MPT
[2017-11-19] MEDS ORDERED: OXYCODONE HCL5 MG PO (13:59)
[2017-11-19] MEDS ORDERED: PROTONIX40 M1 PO (14:00)
[2017-11-19] MEDS ORDERED: LOPRESSOR50 PO (14:00)
[2017-11-19 14:01] VITALS: BP 134/67
[2017-11-19] MEDS ORDERED: MINOCIN100 MG PO (14:01)
--- NOTE | 2017-11-19 15:11 | NUR ---
DPOA completed copy placed on chart.
--- NOTE | 2017-11-19 15:21 | NUR ---
DELIA SPOKE THE RN IN-CHARGE OF THE PATIENT AND SHE INFORMS THAT THE PATIENT REQUEST AN INFOMRATIONAL VISIT WITH HOSPICE. CM SPOKE TO THE PATIENT AND S/O AND THEY W[facility] TORSTEN WITH [facility] HAD AN INFOMATIONAL VISIT WITH THE PATIENT AND PLAN TO MEET THE PATIENT AND SPOUSE AT THEIR HOME AT D/C. CM WILL REMAIN AVAILABLE TO ASSIST AND FOLLOW NEEDED.
--- NOTE | 2017-11-19 16:05 | NUR ---
PATIENT ALERT TO SELF, AND SITUATION. THROUGH OUT DAY, ORIENTATION DECREASED. ON 4L O2 VIA NC, AGONAL BREATHING STARTED APPROXIMATELY 1430. RESPIRATIONS AT 18. PATIENT HAS SIGNED OUTSIDE HOSPITAL DNR, WITNESSED BY NURSE AND SOLE POLISHER. PATIENT LEFT FOREARM IV DISCONTINUED, CATHETER FULLY INTACT. LEG AND BUTTOCK WOUND DRESSING CHANGED AND WOUND CLEANED. C/O GENERALIZED PAIN, MINIMAL RELIEF WITH MEDICATION. PATIENT BEING DISCHARGED TO HOME ON [facility], WILL BE MEETING PATIENT AT WHEN ARRIVED. PATIENT LEFT UNIT VIA EMS AT 1555 WITH ALL BELONGINGS, NOTHING LEFT BEHIND. APPROPRAITE AND COOPORATIVE WITH CARE. PATIENT'S SIGNIFICANT OTHER AND [facility] HAVE BEEN NOTIFIED OF DISCHARGE TIME.
== END 2017-11-19 15:55 | disposition hospice, home (50) | DRG 871 ==
LOC: M.ERS 20:12 → M.ICU 21:40 → M.TBA-ER 21:40 → M.ICU 22:53 → M.2W 11-14 09:36 → M.3W 11-18 18:56
PROVIDERS: Emergency Medicine; Internal Medicine; Internal Medicine Pulmonary Disease; ADMIT Internal Medicine
PROC: B24BZZ4 Ultrasonography of Heart with Aorta, Transesophageal (ICD-10-PCS; principal; 2017-11-14)
DX: A40.9 Streptococcal sepsis, unspecified (principal); J18.9 Pneumonia, unspecified organism; J96.20 Acute and chronic respiratory failure, unspecified whether with hypoxia or hypercapnia; J44.0 Chronic obstructive pulmonary disease with (acute) lower respiratory infection; M41.9 Scoliosis, unspecified; R91.8 Other nonspecific abnormal finding of lung field; I48.91 Unspecified atrial fibrillation; Z79.899 Other long term (current) drug therapy; Z87.891 Personal history of nicotine dependence; Z74.01 Bed confinement status; Z88.2 Allergy status to sulfonamides